=== PATIENT | female | born 1965 | race Caucasian/White ===

== ENCOUNTER 2016-07-04 06:08 | Emergency (ER) | payer BC ==
--- NOTE | 2016-07-04 06:22 | EDM.PDOC ---
ED HPI GENERAL MEDICAL PROBLEM - General Chief Complaint: ENT Problem Stated Complaint: SWOLLEN THROAT, HARD TO SWALLOW Time Seen by Provider: 07/04/16 06:19 Source of Information: Reports: Patient - History of Present Illness INITIAL COMMENTS - FREE TEXT/NARRATIVE: HISTORY AND PHYSICAL: History of present illness: [] Patient presents with sensation of swollen throat and difficulty swallowing Last night prior to going to bed she had eaten blue berries and strawberries, she has not had reaction to this before however on awakening at 5 AM she felt as if her throat was swollen she took Benadryl and presents as above she's in no distress no lip swelling tongue swelling or oral pharyngeal edema No stridor No fever nausea vomiting chills sweats no chest pain shortness breath headache dizziness or palpitation no bowel or urine symptoms Review of systems: As per history of present illness and below otherwise all systems reviewed and negative. Past medical history: As per history of present illness and as reviewed below otherwise noncontributory. Surgical history: As per history of present illness and as reviewed below otherwise noncontributory. Social history: No reported history of drug or alcohol abuse. Family history: As per history of present illness and as reviewed below otherwise noncontributory. Physical exam: HEENT: Atraumatic, normocephalic, pupils reactive, negative for conjunctival pallor or scleral icterus, mucous membranes moist, throat clear, neck supple, nontender, trachea midline. No lip swelling tongue swelling or oral pharyngeal edema no stridor Lungs: Clear to auscultation, breath sounds equal bilaterally, chest nontender. Heart: S1S2, regular, negative for clicks, rubs, or JVD. Abdomen: Soft, nondistended, nontender. Negative for masses or hepatosplenomegaly. Negative for costovertebral tenderness. Pelvis: Stable nontender. Genitourinary: Deferred. Rectal: Deferred. Extremities: Atraumatic, negative for cords or calf pain. Neurovascular unremarkable. Neuro: Awake, alert, oriented. Cranial nerves II through XII unremarkable. Cerebellum unremarkable. Motor and sensory unremarkable throughout. Exam nonfocal. Diagnostics: [] Therapeutics: [] EpiPen Continue Benadryl as needed Impression: [] Worried well Definitive disposition and diagnosis as appropriate pending reevaluation and review of above. - Related Data Allergies Allergy/AdvReac Type Severity Reaction Status Date / Time No Known Allergies Allergy Verified 07/04/16 06:09 Home Meds: Home Meds . [No Known Home Meds] 01/20/15 [History] Past Medical History - Past Health History Medical/Surgical History: Denies Medical/Surgical History Social & Family History - Tobacco Use Smoking Status *Q: Never Smoker Second Hand Smoke Exposure: No - Alcohol Use Days Per Week of Alcohol Use: 1 Number of Drinks Per Day: 1 Total Drinks Per Week: 1 - Recreational Drug Use Recreational Drug Use: No ED ROS GENERAL - Review of Systems Review Of Systems: ROS reveals no pertinent complaints other than HPI. ED EXAM, GENERAL - Physical Exam Exam: See Below Course - Vital Signs Last Recorded V/S: Last Vital Signs Temp 36.5 C 07/04/16 06:10 Pulse 82 07/04/16 06:10 Resp 16 07/04/16 06:10 BP 132/78 07/04/16 06:10 Pulse Ox 99 07/04/16 06:10 Departure - Departure Time of Disposition: 06:20 Disposition: Home, Self-Care 01 Condition: good Clinical Impression: Worried well Forms: ED Department Discharge Additional Instructions: Continue Benadryl every 4-6 hours as needed For now avoid blueberries and strawberries Return if symptoms persist or worsen or if difficulty breathing or lip swelling tongue swelling/throat swelling should develop Followup with primary care, consider allergy testing The following information is given to patients seen in the emergency department who are being discharged to home. This information is to outline your options for follow-up care. We provide all patients seen in our emergency department with a follow-up referral. The need for follow-up, as well as the timing and circumstances, are variable depending upon the specifics of your emergency department visit. If you don't have a primary care physician on staff, we will provide you with a referral. We always advise you to contact your personal physician following an emergency department visit to inform them of the circumstance of the visit and for follow-up with them and/or the need for any referrals to a consulting specialist. The emergency department will also refer you to a specialist when appropriate. This referral assures that you have the opportunity for follow-up care with a specialist. All of these measure are taken in an effort to provide you with optimal care, which includes your follow-up. Under all circumstances we always encourage you to contact your private physician who remains a resource for coordinating your care. When calling for follow-up care, please make the office aware that this follow-up is from your recent emergency room visit. If for any reason you are refused follow-up, please contact the [facility] emergency department at and asked to speak to the emergency department charge nurse.
== END 2016-07-04 06:25 | disposition home or self-care (01) ==
LOC: MW.ED 06:08
DX: Z71.1 Person with feared health complaint in whom no diagnosis is made (principal)
CPT/HCPCS: 99282

== ENCOUNTER → 2016-09-17 | Outpatient (CLI) | payer BC ==
--- NOTE | 2016-09-18 09:04 | US ---
EXAMINATION: Right breast ultrasound HISTORY: Lump COMPARISON: 02/26/2016 TECHNIQUE: Grayscale and color Doppler images obtained. FINDINGS: There is a 5 mm oval hypoechoic mass at the 10 to 11:00 position. This demonstrates pharmacy helper ior acoustic enhancement and no internal color Doppler flow. This likely represents a small cyst and appears grossly unchanged. There is also a tiny 2 mm hypoechoic area also noted to small to charact erize. Several benign-appearing lymph nodes are noted within the axilla. No suspicious mass identifi ed. IMPRESSION: BI-RADS 2: Benign finding. Stable small cystic mass at the 10:30 position. Please follow -up palpable abnormalities clinically.
== END ==
LOC: MW.US 12:54
PROVIDERS: ATTEND Physician Assistant
DX: N63 Unspecified lump in breast (principal)
CPT/HCPCS: 76642-RT; 76642-RT-26

== ENCOUNTER 2017-02-05 11:11 | Day surgery (SDC) | payer BC ==
[2017-02-05] MEDS ORDERED: Lidocaine 2% 5 ML SDV ONE (11:29)
[2017-02-05] MEDS ORDERED: Betamethasone Acetate/Betamethasone Sod Phosphate 30 MG/5 ML MDV ONE (11:29)
[2017-02-05] MEDS ORDERED: Ropivacaine 0.5% 5 MG/ML 30 ML SDV ONE (11:29)
[2017-02-05] MEDS ORDERED: Iopamidol 408 MG/ML 50 ML SDV ONE (11:30)
--- NOTE | 2017-02-05 18:31 | OR ---
SURGEON: Alicia Page D.O. DATE OF PROCEDURE: OR STAFF PRESENT: 1. Levy Cleary RN. 2. Duong Crump RN. 3. oscillograph technician. WOUND CLASSIFICATION: I. PREOPERATIVE DIAGNOSES: 1. Cervical degenerative disk disease. 2. Cervical radiculopathy. POSTOPERATIVE DIAGNOSES: 1. Cervical degenerative disk disease. 2. Cervical radiculopathy. PROCEDURE PERFORMED: 1. Cervical epidural steroid injection interlaminar at C7-T1. 2. Fluoroscopic guidance for needle placement. 3. Local with oral Valium for sedation. SCREENING QUESTIONS: The patient answered "No" to all of the following questions: 1. Are you allergic to iodine, Betadine or latex? 2. Do you have a bleeding disorder? 3. Are you on anti-inflammatories or blood thinners? 4. Do you have any current local or systemic infections? 5. Do you have any joint replacements, heart valve replacements or a pacemaker? DESCRIPTION OF THE PROCEDURE: The patient had the procedure thoroughly explained including risks, benefits and alternatives. Consent was signed in my clinic indicating understanding and willingness to proceed. The patient presented to [facility] and was escorted to the dressing room to disrobe and change into a hospital gown. Preoperative vital signs were taken and stable. The patient reported that Valium 10 milligrams was taken prior to the procedure. The patient was brought to the procedure room and placed in the prone position on the [facility] frame for the cervical epidural steroid injection. A pillow was placed under the legs for patient comfort. The back was prepped with ChloraPrep and sterilely draped. All personnel in the operating room were dressed in appropriate attire including surgical scrubs, head and shoe covers. This was to ensure sterility while in the treatment room. During the time fluoroscopy was in use. all personnel in the operating room wore lead cole with thyroid collars. Sterile technique was used during the procedure. Skeletal landmarks were identified under fluoroscopic guidance for the C7-T1 interspace. The skin overlying the area was anesthetized with 2 cubic centimeters of 2% Lidocaine with a sterile 27-gauge 1.5 inch needle. Likewise the deep tissues were infiltrated. There was no evidence of infection at the site of needle insertion. Then a 20-gauge 3.5 inch Tuohy epidural needle was advanced under fluoroscopic guidance with loss of resistance technique. The needle position was visualized in both AP and lateral views for the C7-T1 cervical epidural steroid injection. Needle position was verified, 0.2 cubic centimeters increments of IsoVue-200 contrast dye injected under live fluoroscopy through microbore tubing and seen to outline the cervical epidural space in AP and lateral views. There was negative aspiration of heme, CSF and no paresthesias were noted. Then 6 milligrams of Celestone was slowly injected. The needle was cleared prior to removal from the skin. No adverse reactions were noted. The patient tolerated the procedure well and was brought to the recovery room awake and in good condition. After a brief stay in the recovery room monitored by the nurse, the patient was discharged to home. The patient was given both oral and written discharge and followup instructions and will follow up in the clinic in two to three weeks. The patient voiced understanding including understanding of those signs and symptoms that would require emergency care and also knows how to contact the office if there are any problems or questions in the meantime. PREOPERATIVE PAIN: 7/10. POSTOPERATIVE PAIN: 7/10. PLAN: Followup in the Pain Clinic in 3 weeks. OLIVIA / GIL /[id number]
== END 2017-02-05 13:20 | disposition home or self-care (01) ==
LOC: MW.SDS 11:11
PROVIDERS: ATTEND Anesthesiology
DX: M50.10 Cervical disc disorder with radiculopathy, unspecified cervical region (principal); M48.02 Spinal stenosis, cervical region; M79.1 Myalgia; Z90.49 Acquired absence of other specified parts of digestive tract; Z90.711 Acquired absence of uterus with remaining cervical stump; Z98.890 Other specified postprocedural states; Z79.899 Other long term (current) drug therapy
CPT/HCPCS: 62321; 64479; J0702; Q9966; J2795